=== PATIENT | female | born 1980 | race Asian ===

== ENCOUNTER 2024-03-25 08:04 | Observation (INO) | payer BC ==
[2024-03-21 12:47] LABS: BASOPHILS % 0.4 % (0.0-1.0); EOSINOPHILS # (AUTO) 0.2 (0.0-0.4); EOSINOPHILS % 1.7 % (0.0-6.0); HEMATOCRIT 39.8 % (34.2-44.1); HEMOGLOBIN 12.8 g/dL (12.0-16.0); LYMPHOCYTES # (AUTO) 3.2 (1.0-3.2); LYMPHOCYTES % 28.2 % (18.0-39.1); MEAN CORPUSCULAR HGB CONC 32.2 g/dL (31-35); MEAN CORPUSCULAR VOLUME 96.4 fL (81-99); MONOCYTES # (AUTO) 0.7 (0.2-0.8); MONOCYTES % 6.1 % (4.4-11.3); NEUTROPHILS # (AUTO) 7.1 (2.1-6.9); NEUTROPHILS % 63.1 % (38.7-80.0); PLATELET COUNT 339 x10e3/uL (140-360); RED BLOOD COUNT 4.13 x10e6/uL (3.6-5.1); RED CELL DISTRIBUTION WIDTH 12.4 % (11.7-14.4); WHITE BLOOD COUNT 11.31 x10e3/uL (4.8-10.8)
[2024-03-21 13:20] LABS: ANION GAP 16.2 mmol/L (8-16); CALCIUM 11.1 mg/dL (8.4-10.2); CREATININE, SERUM 0.84 mg/dL (0.57-1.11); POTASSIUM 4.2 mmol/L (3.5-5.1)
[2024-03-25] VITALS (7 sets, daily range): BP systolic 134–138; BP diastolic 68–78; PULSE 67–76; RESP 16–20; TEMP 98–99; O2SAT 98–100
[~2024-03-25] VITALS: Ht 154.9 cm; Wt 102.5 kg
[2024-03-25] MEDS: SCOPOLAMINE 1 MG PATCH TOP SCH (07:45)
[~2024-03-25 08:04] MED LIST: LEVOTHYROXINE50 MCG PO; LOSARTAN POTASS25 MG PO; METFORMIN HCL500 MG PO; MOUNJARO12.5 MG/0. SC
[2024-03-25] MEDS ORDERED: PROPOFOL IV EMULSION 10 MG/ML 20 ML VIAL ONE (08:25)
[2024-03-25] MEDS ORDERED: LIDOCAINE HCL 2% LOCAL INJ 5 ML SDV VIAL INJ ONE (08:26)
[2024-03-25] MEDS ORDERED: ROCURONIUM BROMIDE 1 ML IV ONE (08:34)
[2024-03-25] MEDS ORDERED: FENTANYL CITRATE/PF 100MCG/2 ML INJ ONE (08:35)
[2024-03-25] MEDS: LEVOFLOXACIN 500MG/D5W 100ML 100 ML IV ONE (09:50)
[2024-03-25] MEDS: LACTATED RINGER'S 1,000 ML ONE (09:50)
[2024-03-25] MEDS ORDERED: BUPIVACAINE 0.25% 30ML SDV ONE (10:04)
[2024-03-25] MEDS ORDERED: SCOPOLAMINE 1 MG PATCH ONE (10:05)
[2024-03-25] MEDS ORDERED: MIDAZOLAM HCL 2 MG/2 ML VIAL ONE (10:10)
[2024-03-25] MEDS ORDERED: DEXAMETHASONE SOD PHOS INJ 4 MG/ML SDV ONE (10:29)
[2024-03-25] MEDS ORDERED: METOCLOPRAMIDE HCL 10 MG/2ML VIAL ONE (10:29)
[2024-03-25] MEDS ORDERED: ACETAMINOPHEN 1000 MG/100 ML 100 ML IV ONE (10:42)
[2024-03-25] MEDS ORDERED: ONDANSETRON HCL INJ 2MG/ML 2ML 2 MG/ML VIAL ONE (10:56)
[2024-03-25] MEDS: HYDROMORPHONE 1MG/1ML INJ ONE (11:47)
[2024-03-25] MEDS: ONDANSETRON HCL INJ 2MG/ML 2ML 2 MG/ML VIAL ONE (11:47)
[2024-03-25] MEDS ORDERED: metoprolol PO (13:27)
[2024-03-25] MEDS: SODIUM CHLORIDE 0.9% 1000ML 1,000 ML IV SCH (13:28)
[2024-03-25] MEDS: HYDROCODONE/APAP 7.5MG-325MG 1 EA TAB PO PRN (14:04)
[2024-03-25] MEDS: Morphine 2mg Syringe 2 MG/ML SYR IV PRN (16:02)
[2024-03-25] MEDS: ENOXAPARIN SOD INJ 40 MG/0.4 ML SYR SC SCH (17:19)
[2024-03-25] MEDS: HYDROMORPHONE 1MG/1ML INJ IV ONE (18:28)
[2024-03-25] MEDS: HYDROMORPHONE 1MG/1ML INJ IV PRN (22:46)
[2024-03-25] MEDS: TEMAZEPAM 15 MG CAP PO ONE ×2 (22:54→23:01)
[2024-03-26 00:03] VITALS: BP 138/98; PULSE 79; RESP 18; TEMP 98.2; O2SAT 98
[2024-03-26 04:12] VITALS: BP 130/62; PULSE 84; RESP 16; TEMP 99.1; O2SAT 98
[2024-03-26 05:13] LABS: BASOPHILS % 0.1 % (0.0-1.0); HEMATOCRIT 31.6 % (34.2-44.1); HEMOGLOBIN 10.8 g/dL (12.0-16.0); LYMPHOCYTES # (AUTO) 2.4 (1.0-3.2); LYMPHOCYTES % 21.3 % (18.0-39.1); MEAN CORPUSCULAR HEMOGLOBIN 31.8 pg (28-32); MEAN CORPUSCULAR HGB CONC 34.2 g/dL (31-35); MEAN CORPUSCULAR VOLUME 92.9 fL (81-99); MONOCYTES # (AUTO) 1.1 (0.2-0.8); MONOCYTES % 9.3 % (4.4-11.3); NEUTROPHILS # (AUTO) 7.9 (2.1-6.9); NEUTROPHILS % 68.9 % (38.7-80.0); PLATELET COUNT 314 x10e3/uL (140-360); RED CELL DISTRIBUTION WIDTH 12.5 % (11.7-14.4); WHITE BLOOD COUNT 11.43 x10e3/uL (4.8-10.8)
[2024-03-26 05:44] LABS: ALBUMIN 3.3 g/dL (3.5-5.0); ALBUMIN/GLOBULIN RATIO 0.9 (0.8-2.0); ANION GAP 13.7 mmol/L (8-16); BILIRUBIN,TOTAL 0.4 mg/dL (0.2-1.2); CALCIUM 8.9 mg/dL (8.4-10.2); CREATININE, SERUM 0.74 mg/dL (0.57-1.11); MAGNESIUM 1.8 MG/DL (1.3-2.1); PHOSPHORUS 2.6 MG/DL (2.3-4.7); POTASSIUM 3.7 mmol/L (3.5-5.1); TOTAL PROTEIN 6.8 g/dL (6.5-8.1)
[2024-03-26] MEDS: ONDANSETRON HCL INJ 2MG/ML 2ML 2 MG/ML VIAL IV PRN (07:39)
[2024-03-26 08:46] VITALS: BP 159/86; PULSE 80; RESP 18; TEMP 98.7
[2024-03-26 09:48] VITALS: BP 159/86; PULSE 80; RESP 18; TEMP 98.7; O2SAT 100
== END 2024-03-26 12:35 | disposition home or self-care (01) ==
LOC: OR 08:04 → PACU V 11:44 → INTOOBSV 11:44 → MED/SURG 12:40
PROVIDERS: ADMIT Internal Medicine; ATTEND Internal Medicine
DX: E66.01 Morbid (severe) obesity due to excess calories (principal); Z68.41 Body mass index [BMI] 40.0-44.9, adult; R16.0 Hepatomegaly, not elsewhere classified; I10 Essential (primary) hypertension; E11.9 Type 2 diabetes mellitus without complications; R10.12 Left upper quadrant pain; M25.512 Pain in left shoulder; R14.2 Eructation; E03.9 Hypothyroidism, unspecified; Z88.0 Allergy status to penicillin; Z01.810 Encounter for preprocedural cardiovascular examination; Z01.812 Encounter for preprocedural laboratory examination; Z79.84 Long term (current) use of oral hypoglycemic drugs; Z79.85 Long-term (current) use of injectable non-insulin antidiabetic drugs; Z79.899 Other long term (current) drug therapy
CPT/HCPCS: 36415 ×3; 43775; 47379; 71045; 80048; 80053; 81025; 82948 ×2; 83735; 84100; 85025 ×2; 88307; 93005; 94799; G0378 ×2; J0131; J1100; J1171 ×2; J1650; J1956; J2003; J2250; J2270; J2405 ×2; J2704; J2765; J3010; J7030; J7121; 88313